=== PATIENT | male | born 1965 | race Caucasian/White ===

== ENCOUNTER 2016-11-02 19:45 | Emergency (ER) | payer OTHER ==
--- NOTE | ~2016-11-02 | CR106 ---
[facility] A Service of [facility] RADIOLOGY TEXT RESULTS PATIENT: ANDREW BERMAN LOCATION: [facility] : 61 UNIT #: [id number] AGE: [address]: Radha Whitaker APRN SEX: M ORDER DR: [id number] [facility] [address] [place], [place] [address] [id number] E MR#: [id number] Acc #: [id number] NAME: ANDREW BERMAN. : 1965 SEX: M STUDY DATE/TIME: 11/02/2016 23:01 UNIT: [facility] ROOM: STUDY DESCRIPTION: CR Femur 2 Views Lt Attending Physician: Radha Whitaker A.P.R.N. Ordering Physician: Radha Whitaker A.P.R.N. Primary Care Physician: Neema Reynolds MEDICAL IMAGING REPORT This report is preliminary unless electronic signature is present EXAM Left femur INDICATIONS Left femur pain. History of osteomyelitis in left femur. Pain is getting worse the last 3 days. FINDINGS AP and lateral views of the left femur were obtained. A long section of the femoral shaft is abnormal with cortical thickening and there is a well-circumscribed defect in the lateral cortical margin. This defect is about 4.8 cm in length. There is no fracture identified. No abnormal lucency is visible. IMPRESSION There is a long segment of the mid femur on the left side that is abnormal and the changes are consistent with the given history of previous osteomyelitis. This segment is at least 22 cm long. There is cortical thickening in this region and increased bone density throughout the bone, and there is a well-circumscribed 4.7-cm defect in the lateral margin of the bone. If there is clinical concern for osteomyelitis, then other testing such as indium-111 white blood cell scan and bone scans and/or MRI may be useful for further evaluation as an outpatient. Dictated by... Loki Guillaume M.D. THIS IS AN ELECTRONICALLY VERIFIED REPORT Loki Guillaume M.D. at 11/03/2016 5:49 AM FEL/psc STS. [facility] A Service of [facility] RADIOLOGY TEXT RESULTS PATIENT: ANDREW BERMAN LOCATION: [facility] #: [id number] : 61 UNIT #: [id number] AGE: [address]: Radha Whitaker APRN SEX: M ORDER DR: TD: 11/03/2016 02:48 JOB #: [id number] MEDICAL IMAGING REPORT Page 1 of 1 COPY
--- NOTE | ~2016-11-02 | CR229 ---
[facility] A Service of [facility] & [facility] RADIOLOGY TEXT RESULTS PATIENT: ANDREW BERMAN LOCATION: [facility] : 61 UNIT #: [id number] AGE: [address]: Radha Whitaker APRN SEX: M ORDER DR: [id number] [facility] [address] [place], [place] [address] [id number] E MR#: [id number] Acc #: [id number] NAME: ANDREW BERMAN. : 1965 SEX: M STUDY DATE/TIME: 11/02/2016 22:55 UNIT: [facility] ROOM: STUDY DESCRIPTION: CR Shoulder Min 2 View Lt Attending Physician: Radha Whitaker A.P.R.N. Ordering Physician: Radha Whitaker A.P.R.N. Primary Care Physician: Neema Reynolds MEDICAL IMAGING REPORT This report is preliminary unless electronic signature is present EXAM Left shoulder HISTORY Left shoulder pain for a while which is getting worse the last 3 days. FINDINGS AP view with internal and external rotation of the shoulder girdle shows satisfactory relationship of the humeral head and glenoid fossa. The joint space is normal. There is no identifiable fracture or dislocation or bony destructive process about the shoulder girdle anatomy. The acromioclavicular joint is normal. There is no radiopaque foreign body in the region. IMPRESSION Normal shoulder. Dictated by... Loki Guillaume M.D. THIS IS AN ELECTRONICALLY VERIFIED REPORT Loki Guillaume M.D. at 11/03/2016 5:49 AM ANANDA/bal TD: 11/03/2016 02:47 JOB #: [id number] MEDICAL IMAGING REPORT Page 1 of 1 COPY
--- NOTE | ~2016-11-02 | CR181 ---
[facility] A Service of [facility] & [facility] RADIOLOGY TEXT RESULTS PATIENT: ANDREW BERMAN LOCATION: [facility] : 61 UNIT #: [id number] AGE: [address]: Radha Whitaker APRN SEX: M ORDER DR: [id number] [facility] [address] [place], [place] [address] [id number] E MR#: [id number] Acc #: [id number] NAME: ANDREW BERMAN. : 1965 SEX: M STUDY DATE/TIME: 11/02/2016 23:15 UNIT: [facility] ROOM: STUDY DESCRIPTION: CR Lumbar Spine 2 or 3 Views Attending Physician: Radha Whitaker A.P.R.N. Ordering Physician: Radha Whitaker A.P.R.N. Primary Care Physician: Neema Reynolds MEDICAL IMAGING REPORT This report is preliminary unless electronic signature is present EXAM Lumbar spine 3 view series INDICATION Low back pain for 3 days which is getting worse. FINDINGS 3 views of the lumbar spine were obtained. There is no subluxation or significant disc space narrowing. There are anterior osteophyte formations at L2-3 and L3-4. IMPRESSION Mild anterior osteophyte formations, otherwise normal. Dictated by... Loki Guillaume M.D. THIS IS AN ELECTRONICALLY VERIFIED REPORT Loki Guillaume M.D. at 11/03/2016 5:49 AM ANANDA/farshad TD: 11/03/2016 02:52 JOB #: [id number] MEDICAL IMAGING REPORT Page 1 of 1 COPY
--- NOTE | ~2016-11-02 | EKG ---
PATIENT: ANDREW BERMAN UNIT #: [id number] Ventricular Rate: 84 BPM Atrial Rate: 84 BPM P-R Interval: 154 ms QRS Duration: 84 ms Q-T Interval: 362 ms QTC Calculation(Bezet): 427 ms P Clyman: -16 degrees Calculated R Clyman: -10 degrees Calculated T Clyman: 64 degrees Diagnosis Line: Normal sinus rhythm Diagnosis Line: Normal ECG Diagnosis Line: No previous ECGs available Diagnosis Line: Confirmed by CARLA BARLOW MD ([id number]) on Diagnosis Line: 11/04/2016 10:32:48 AM INTERPRETING MD: CAIN CHAIREZ
--- NOTE | ~2016-11-02 | CR230 ---
[facility] A Service of [facility] & [facility] RADIOLOGY TEXT RESULTS PATIENT: ANDREW BERMAN LOCATION: [facility] : 61 UNIT #: [id number] AGE: [address]: Radha Whitaker APRN SEX: M ORDER DR: [id number] [facility] [address] [place], [place] [address] [id number] E MR#: [id number] Acc #: [id number] NAME: ANDREW BERMAN. : 1965 SEX: M STUDY DATE/TIME: 11/02/2016 22:57 UNIT: [facility] ROOM: STUDY DESCRIPTION: CR Shoulder Min 2 View Rt Attending Physician: Radha Whitaker A.P.R.N. Ordering Physician: Radha Whitaker A.P.R.N. Primary Care Physician: Neema Reynolds MEDICAL IMAGING REPORT This report is preliminary unless electronic signature is present EXAM Right shoulder INDICATION Right shoulder pain. Pain for days which is getting worse. FINDINGS AP view with internal and external rotation of the shoulder girdle shows satisfactory relationship of the humeral head and glenoid fossa. The joint space is normal. There is no identifiable fracture or dislocation or bony destructive process about the shoulder girdle anatomy. The acromioclavicular joint is normal. There is no radiopaque foreign body in the region. IMPRESSION Normal shoulder. Dictated by... Loki Guillaume M.D. THIS IS AN ELECTRONICALLY VERIFIED REPORT Loki Guillaume M.D. at 11/03/2016 5:49 AM ANANDA/farshad TD: 11/03/2016 02:47 JOB #: [id number] MEDICAL IMAGING REPORT Page 1 of 1 COPY
--- NOTE | ~2016-11-02 | CR243 ---
[facility] A Service of [facility] RADIOLOGY TEXT RESULTS PATIENT: ANDREW BERMAN LOCATION: [facility] : 61 UNIT #: [id number] AGE: [address]: Radha Whitaker APRN SEX: M ORDER DR: [id number] [facility] [address] [place], [place] [address] [id number] E MR#: [id number] Acc #: [id number] NAME: ANDREW BERMAN. : 1965 SEX: M STUDY DATE/TIME: 11/02/2016 23:12 UNIT: [facility] ROOM: STUDY DESCRIPTION: CR Thoracic Spine 3 Views Attending Physician: Radha Whitaker A.P.R.N. Ordering Physician: Radha Whitaker A.P.R.N. Primary Care Physician: Neema Reynolds MEDICAL IMAGING REPORT This report is preliminary unless electronic signature is present EXAM Thoracic spine series INDICATIONS Back pain for 3 days, which is getting worse. FINDINGS AP and lateral examination of the dorsal segment shows normal mineralization and a satisfactory anatomical dorsal kyphosis. All body heights, interspaces, and posterior elements are normal anatomically without any indication of malignancy, trauma, unusual paraspinal soft tissue density mass, or congenital defect. IMPRESSION Normal thoracic spine. Dictated by... Loki Guillaume M.D. THIS IS AN ELECTRONICALLY VERIFIED REPORT Loki Guillaume M.D. at 11/03/2016 5:49 AM ANANDA/bal TD: 11/03/2016 02:54 JOB #: [id number] MEDICAL IMAGING REPORT Page 1 of 1 COPY
--- NOTE | ~2016-11-02 | CR58 ---
[facility] A Service of [place] [facility] RADIOLOGY TEXT RESULTS PATIENT: ANDREW BERMAN LOCATION: [facility] : 61 UNIT #: [id number] AGE: [address]: Radha Whitaker APRN SEX: M ORDER DR: [id number] [facility] [address] [place], [place] [address] [id number] E MR#: [id number] Acc #: [id number] NAME: ANDREW BERMAN. : 1965 SEX: M STUDY DATE/TIME: 11/02/2016 23:07 UNIT: [facility] ROOM: STUDY DESCRIPTION: CR Cervical Spine 2 or 3 Views Attending Physician: Radha Whitaker A.P.R.N. Ordering Physician: Radha Whitaker A.P.R.N. Primary Care Physician: Neema Reynolds MEDICAL IMAGING REPORT This report is preliminary unless electronic signature is present EXAM Cervical spine 3 view series. INDICATION Pain in cervical spine for 3 days. FINDINGS AP, lateral and odontoid views of the cervical spine were obtained. There is anterior osteophyte formations at C3-4, 4-5 and 5-6 with mild disc space narrowing. There is no subluxation identified. IMPRESSION Mild degenerative changes in the mid cervical spine. No acute abnormalities. Dictated by... Loki Guillaume M.D. THIS IS AN ELECTRONICALLY VERIFIED REPORT Loki Guillaume M.D. at 11/03/2016 5:49 AM ANANDA/farshad TD: 11/03/2016 02:50 JOB #: [id number] MEDICAL IMAGING REPORT Page 1 of 1 COPY
[2016-11-02 23:05] LABS: BASOPHIL% 0.4 % (0-2.5); EOSINOPHIL# 0.2 X10e3 (0-0.7); EOSINOPHIL% 1.9 % (0.0-7.0); HEMATOCRIT 43.9 % (38.0-50.0); HEMOGLOBIN 14.9 gm/dL (13.0-16.0); LYMPHOCYTE# 3.4 X10e3 (1.0-3.5); LYMPHOCYTE% 34.5 % (17.0-45.0); MEAN CELL VOLUME 94.3 FL (83-96); MEAN CORPUSCULAR HEMOGLOBIN 32.1 PG (28-34); MEAN PLATELET VOLUME 9.5 FL (6.5-11.5); MONOCYTE% 10.1 % (3.0-12.0); NEUTROPHIL# 5.2 X10e3 (1.5-7.1); NEUTROPHIL% 53.1 % (40-75); PLATELET COUNT 187 X10e3 (140-420); RED BLOOD COUNT 4.66 X10e (3.90-5.60); RED CELL DISTRIBUTION WIDTH 14.7 % (11.0-15.5); WHITE BLOOD COUNT 9.9 X10e3 (4.0-10.5)
[2016-11-02 23:08] LABS: DIFF IND NO
[2016-11-02 23:16] LABS: PARTIAL THROMBOPLASTIN TIME 27.3 SECONDS (23.5-31.3); PROTHROMBIN TIME (PATIENT) 10.5 SECONDS (10.0-11.7)
[2016-11-02 23:18] LABS: URINE SOURCE CLEAN CATCH
[2016-11-02 23:24] LABS: URINE APPEARANCE CLEAR; URINE BILIRUBIN NEG (NEG); URINE BLOOD TRACE (NEG); URINE COLOR YELLOW; URINE GLUCOSE NEG (NEG); URINE KETONE NEG (NEG); URINE LEUKOCYTE ESTERASE NEG (NEG); URINE NITRATE NEG (NEG); URINE PH 5.5 (5-8); URINE PROTEIN NEG (NEG); URINE SPECIFIC GRAVITY 1.012 (1.003-1.035); URINE UROBILINOGEN 0.2 MG/DL (NEG)
[2016-11-02 23:27] LABS: URBCS1 AUWI 0-2 /[HPF] (0-2); URINE BACTERIA AUWI NEG (NEGATIVE); URINE SQUAMOUS EPITHELIAL CELL NONE SEEN /[HPF]; UWBCS1 AUWI 0-2 (0-5)
[2016-11-02 23:28] LABS: CULTURE INDICATED? NO
[2016-11-02 23:33] LABS: ALBUMIN SERUM 3.8 g/dL (3.5-5.0); BILIRUBIN, DIRECT 0.1 mg/dL (0.0-0.2); BILIRUBIN,INDIRECT 0.3 mg/dL (0.0-0.9); BILIRUBIN,TOTAL 0.4 mg/dL (0.2-2.0); BUN/CREATININE RATIO 28.75; CALCIUM SERUM 8.7 mg/dL (8.4-10.2); CREATININE SERUM 0.8 mg/dL (0.6-1.4); POTASSIUM 4.1 mmol/L (3.5-5.1); PROTEIN TOTAL SERUM 7.9 g/dL (6.0-8.3)
== END 2016-11-03 01:32 | disposition home or self-care (01) ==
LOC: CED 19:45
PROVIDERS: Nurse Practitioner
DX: M79.662 Pain in left lower leg (principal); G89.29 Other chronic pain; M54.2 Cervicalgia; M54.9 Dorsalgia, unspecified; F17.200 Nicotine dependence, unspecified, uncomplicated; Z88.5 Allergy status to narcotic agent; Z88.6 Allergy status to analgesic agent; Z88.1 Allergy status to other antibiotic agents; Z88.8 Allergy status to other drugs, medicaments and biological substances
CPT/HCPCS: 36415; 72040; 72072; 72100; 73030; 73552; 80048; 80076; 80184; 81003; 82150; 83690; 85025; 85610; 85730; 93005; 96361; 96374; 99284; J1885

== ENCOUNTER → 2017-01-13 | Outpatient (CLI) | payer OTHER ==
--- NOTE | ~2017-01-13 | CT92 ---
[facility] A Service of [facility] RADIOLOGY TEXT RESULTS PATIENT: ANDREW BERMAN LOCATION: [facility] : 61 UNIT #: [id number] AGE: [address]: Anne Gramajo MD SEX: M ORDER DR: [id number] [facility] [address] [place], [place] [address] [id number] O MR#: [id number] [facility] #: [id number] NAME: ANDREW BERMAN : 1965 SEX: M STUDY DATE/TIME: 01/13/2017 9:21 UNIT: [facility] ROOM: STUDY DESCRIPTION: CT Lower Ext Lt Wo Cont Attending Physician: Anne Gramajo M.D. Referring Physician: Anne Gramajo M.D. Ordering Physician: Anne Gramajo M.D. Primary Care Physician: Anne Gramajo M.D. MEDICAL IMAGING REPORT This report is preliminary unless electronic signature is present EXAM CT pelvis and hips without contrast, with coronal and sagittal reconstructions, 01/04/2017. HISTORY Order states arthritis, multiple sites. Arthritis of left hip. History of osteomyelitis with left total hip arthroplasty removed in the past. Please evaluate left hip area. MRI is precluded due to metal in finger, as a result of surgery. History sheet states left hip pain since 1981, progressing over the years. History of recurrent osteomyelitis with multiple surgeries, left hip. History of a nail in the left femur. History of left second digit amputation, due to cancer and osteomyelitis. COMPARISON Patient visit summary, [facility], 12/28/2018. Left femur radiographs 11/02/2016 and left knee radiographs 10/11/2005. FINDINGS The hips show no fracture, osteonecrosis, effusion, or visible arthritic change. The remainder of the bony pelvis, sacrum, and SI joints are unremarkable. There is evidence of an intramedullary kathleen track in the left femur. The femoral abnormality noted on the radiographs of 11/02/2016 is not included on this routine pelvis hip CT. If there is strong clinical concern that the patient's symptoms are related to the femoral shaft, especially if there is any clinical concern for osteomyelitis, MRI without and with IV contrast is the recommended imaging modality. Reportedly, the patient has metal in the finger; this does not necessarily preclude MRI. If further details regarding the metal or radiographs are available, the patient could the screened for MRI safety by the MRI department. [facility] A Service of [facility] RADIOLOGY TEXT RESULTS PATIENT: ANDREW BERMAN LOCATION: [facility] : 61 UNIT #: [id number] AGE: [address]: Anne Gramajo MD SEX: M ORDER DR: There is atherosclerotic vascular calcification. There is no internal pelvic pathology. No muscle atrophy is noted. IMPRESSION 1. The musculoskeletal pelvis and hips are normal. There is no evidence of arthritis of the hips. 2. Previous intramedullary kathleen in the left femur. The left femur abnormality noted on the radiographs of 11/02/2016 is not included on this routine pelvis/hip CT. See above comments, including comments about MRI and MRI screening. Dictated by... Marie Santana M.D. THIS IS AN ELECTRONICALLY VERIFIED REPORT Marie Santana M.D. at 01/17/2017 11:52 AM MEGHAN/digna TD: 01/14/2017 14:03 JOB #: [id number] MEDICAL IMAGING REPORT Page 1 of 1 COPY
== END | disposition home or self-care (01) ==
LOC: CCAT 08:58
DX: M13.89 Other specified arthritis, multiple sites (principal); R93.7 Abnormal findings on diagnostic imaging of other parts of musculoskeletal system
CPT/HCPCS: 73700